=== PATIENT | male | born 1960 | race Caucasian/White ===

== ENCOUNTER 2019-09-25 16:06 | Emergency (ER) | payer OTHER ==
[~2019-09-25] VITALS: Ht 180.3 cm; Wt 77.1 kg
[~2019-09-25 16:06] MED LIST: HYDROXYZINE HCL25 M2 GT; UNICOMPLEX M TA1 TA1 PO
[2019-09-25 16:09] VITALS: BP 134/87
[2019-09-25] MEDS ORDERED: AUGMENTIN 875-1 EACH PO (16:21)
== END 2019-09-25 17:22 | disposition home or self-care (01) ==
LOC: ER 16:06
DX: S71.151A Open bite, right thigh, initial encounter (principal); Z88.1 Allergy status to other antibiotic agents; Z79.899 Other long term (current) drug therapy; Z90.89 Acquired absence of other organs; W54.0XXA Bitten by dog, initial encounter; Y93.89 Activity, other specified; Y92.89 Other specified places as the place of occurrence of the external cause; Y99.9 Unspecified external cause status